=== PATIENT | female | born 1985 | race Caucasian/White ===

== ENCOUNTER → 2017-03-10 | Outpatient (CLI) | payer BC | LOC: LABWHC1 10:51 | PROVIDERS: ATTEND Obstetrics & Gynecology | DX: Z87.448 Personal history of other diseases of urinary system (principal) | CPT/HCPCS: 36415; 81050; 82575; 84156 ==

== ENCOUNTER → 2017-04-10 | Outpatient (CLI) | payer BC ==
--- NOTE | 2017-04-11 07:01 | CONS ---
DATE OF CONSULTATION: Consultation note for sleep apnea. A 31-year-old female patient who is currently 7-1/2 months . She comes in upon the request of her family members including for possible obstructive sleep apnea. Apparently the patient was recently noted to snore and stop breathing by her spouse. This was reported to her [facility]UAGE [facility] doctor who in turn referred this patient to me for sleep apnea evaluation. Note that these are not frequent events and the patient has been told to stop breathing a few times at night. This got worse actually with and prior to that she had no other complaints and she reported good sleep quality at baseline. Currently she is going to bed around 9:30 p.m., waking up at 7 to 8 a.m. in the morning and she is averaging more than 7 hours of sleep. No major tiredness, fatigue or sleepiness during the day. No troubles with memory and concentration. No falling asleep during the day. She has gained around 20 pounds above her baseline with her current . She prefers to sleep on her side now that she is . She wakes up a few times in the middle of the night approximately 2 to 3 times. No sleep paralysis. No hallucinations. No cataplexy. PAST MEDICAL HISTORY: Negative. PAST SURGICAL HISTORY: Negative. ALLERGIES: Not known. Medications are none. SOCIAL HISTORY: Nonsmoker. No history of alcohol. No history of IV drugs. FAMILY HISTORY: Negative for sleep apnea. REVIEW OF SYSTEMS: Twelve-point review of systems was done. Positive findings were all mentioned above in the history of present illness. Her BP is 139/76, pulse 82, respirations 16, temperature 98.0, saturation 98% on room air. BMI is 40.7. Her weight is 280. Height is 69-1/2 inches. [place] score is 14. Neck size is ( ). GENERAL APPEARANCE: Calm, comfortable. HEENT: Negative for JVD. There is no goiter or neck masses. No significant crowding of the posterior pharynx. LUNGS: Clear to auscultation. HEART: Sounds are regular rate and rhythm. Normal S1, S2. ABDOMEN: Soft, nontender. No organomegaly. EXTREMITIES: No edema. No cyanosis or clubbing. IMPRESSION: 1. Snoring with mild degree of hypersomnia. Rule out obstructive sleep apnea. 2. Obesity. 3. and the patient is in 7-1/2 months of gestation. PLAN: Ideally I would like the patient to complete her delivery. Studying this patient right now for sleep apnea may not be a true reflection of her sleep quality that we will follow following her delivery. I am sure that following the delivery, the patient will lose weight and the anatomic restriction on her lungs caused by the will improve. Her sleep quality will also changed. As such, the patient will see me back around 6 months following her delivery to be re-evaluated and at that point will consider doing a sleep study if needed.
== END | disposition home or self-care (01) ==
LOC: SLEEP 15:37
PROVIDERS: ATTEND Internal Medicine Critical Care Medicine
DX: O99.354 Diseases of the nervous system complicating childbirth (principal); G47.10 Hypersomnia, unspecified; E66.9 Obesity, unspecified; Z3A.01 Less than 8 weeks gestation of pregnancy
CPT/HCPCS: 99211

== ENCOUNTER 2017-05-23 18:51 | Inpatient (IN) | payer BC ==
[2017-05-23] MEDS ORDERED: CITRIC ACID-SODIUM CITRATE 15 ML CUP PO ONE (19:36)
[2017-05-23] MEDS ORDERED: ceFAZolin 3 GM in SODIUM CHLORIDE 0.9% 100 ML IVPB ONE (19:36)
[2017-05-23] MEDS ORDERED: LACTATED RINGERS 1,000 ML IV ONE (19:36)
[2017-05-23] MEDS ORDERED: PENICILLIN G POTASSIUM 5,000,000 UNIT in DEXTROSE 5% IN WATER 100 ML IVPB STA ×2 (19:44)
[2017-05-23 19:54] VITALS: BMI 41.3
[2017-05-23 19:55] LABS: Basophils % (A) 0 %; CH 27.8; Eosinophils # (A) 0.1 k/uL (0-0.7); Eosinophils % (A) 1 %; HCT 33.5 % (34.0-46.0); HGB 11.2 gm/dL (11.4-16.0); Luc # (Auto) 0.11; Luc % (Auto) 1; Lymphocytes # (A) 1.5 k/uL (1.0-4.8); Lymphocytes % (A) 17 %; MCH 28.3 pg (25.0-35.0); MCHC 33.4 g/dL (31.0-37.0); MCV 84.7 fL (80.0-100.0); Monocytes # (A) 0.5 k/uL (0-1.0); Monocytes % (A) 5 %; Neutrophils # (A) 6.8 k/uL (1.3-7.7); Neutrophils % (A) 75 %; RBC 3.96 m/uL (3.80-5.40); RDW 15.3 % (11.5-15.5); WBC 9.1 k/uL (3.8-10.6); WBC (Perox) 9.31
[2017-05-23] MEDS ORDERED: SODIUM CHLORIDE 0.9% 100 ML BAG ONE (20:38)
[2017-05-23] MEDS ORDERED: KETOROLAC 30 MG/ML 1 ML VIAL ONE (20:38)
[2017-05-23] MEDS ORDERED: MORPHINE SULFATE (PF) 0.3 MG/0.3 ML SYR ONE (20:38)
[2017-05-23] MEDS ORDERED: ceFAZolin 1,000 MG VIAL ONE (20:38)
[2017-05-23] MEDS ORDERED: PHENYLEPHRINE-0.9% NACL SYG 1 MG/10 ML SYRINGE ONE (20:38)
[2017-05-23] MEDS ORDERED: OXYTOCIN 10 UNIT/ML 1 ML VIAL ONE (20:38)
[2017-05-23] MEDS ORDERED: DEXAMETHASONE SOD PHOS (MDV) 100 MG/10 ML VIAL ONE (20:38)
[2017-05-23] MEDS ORDERED: ONDANSETRON 4 MG/2 ML VIAL ONE (20:38)
--- NOTE | 2017-05-23 20:38 | P.HPOB ---
History of Present Illness H&P Date: 05/23/17 Chief Complaint: My water broke at 5:30 this evening, clear fluid This is a 31-year-old female 2 para 1001 EDC 06/23/2017 at 35-4/7 weeks ' gestation. Patient presents with a history of spontaneous amniorrhexis, clear fluid at 5:30 PM. She is having mild irregular uterine contractions to follow. She denies vaginal bleeding. Fetus is been active throughout the . Past medical history is significant for polycystic kidneys. Past surgical history in the past for nonreassuring heart tones, low transverse. Patient has a history of rhinoplasty and a wrist repair as a child. Social history patient is , she is a nonsmoker, she denies alcohol or drug use. ALLERGIES none known. Current medications vitamins daily. Obstetric history is not complete, as the chart has not yet been sent over from the office. Patient is Rh+, group B strep cultures have not yet been obtained. Full labs will be sent over tomorrow morning. On exam this is a pleasant white female, 5 foot 9 inches, 280 pounds, vital signs are stable including blood pressure 139/74, pulse 93, temperature 97.5, respirations 15. The general physical exam is within normal limits. Extremities reveal no edema. Pelvic exam reveals positive amnisure, clear fluid. Cervix appears close to inspection. is breech to Sarwat's maneuvers. heart tones are consistent with reactive NST. Irregular uterine contractions are noted. Impression: 35-4/7 weeks intrauterine , previous section declining , spontaneous rupture of membranes, breech presentation. Plan: Penicillin G 5 million units as are the been given. We will proceed with low transverse repeat section. Patient is declining tubal ligation. All risks and benefits have been reviewed. Review of Systems Constitutional: Reports as per HPI Past Medical History Past Medical History: Renal Disease Additional Past Medical History / Comment(s): polycystic kidney disease History of Any Multi-Drug Resistant Organisms: None Reported Past Surgical History: Section Past Anesthesia/Blood Transfusion Reactions: No Reported Reaction Past Psychological History: No Psychological Hx Reported Smoking Status: Never smoker - Past Family History Mother Family Medical History: No Reported History Medications and Allergies Home Medications Medication Instructions Recorded Confirmed Type Ferrous Gluconate [Iron] 250 mg PO BID 05/23/17 05/23/17 History Pnv,Calcium 72/Iron/Folic Acid 1 tab PO DAILY 05/23/17 05/23/17 History [ Plus Tablet] Allergies Allergy/AdvReac Type Severity Reaction Status Date / Time No Known Allergies Allergy Verified 05/23/17 19:05 Exam - Vital Signs Vital signs: Vital Signs Temp Pulse Resp BP Pulse Ox 05/23/17 20:06 97.5 F L 93 15 139/74 05/23/17 19:51 97.5 F L 93 15 139/74 100 Intake and Output 05/23/17 05/23/17 05/23/17 06:59 14:59 22:59 Other: Weight 127.006 kg Patient Weight 05/24/17 06:59 Weight 127.006 kg See dictation under HPI section. Results Result Diagrams: 05/23/17 19:40 Abnormal Lab Results - Last 24 Hours (Table) 05/23/17 Range/Units 19:40 Hgb 11.2 L (11.4-16.0) gm/dL Hct 33.5 L (34.0-46.0) % Assessment and Plan Plan: Penicillin G prophylaxis has already been given. We will proceed with repeat low transverse section. Patient declining option for tubal ligation. Time with Patient: Less than 30
[2017-05-23] MEDS ORDERED: ONDANSETRON 4 MG/2 ML VIAL IVP PRN ×2 (21:12→21:42)
[2017-05-23] MEDS ORDERED: NALOXONE 0.4 MG/ML 1 ML VIAL IV PRN ×2 (21:12→21:42)
[2017-05-23] MEDS ORDERED: diphenhydrAMINE 50 MG/ML 1 ML VIAL IVP PRN ×3 (21:12→21:42)
[2017-05-23] MEDS ORDERED: MORPHINE SULFATE 4 MG/ML SYRINGE IVP PRN (21:12)
[2017-05-23] MEDS ORDERED: diphenhydrAMINE 50 MG CAP PO PRN (21:42)
[2017-05-23] MEDS ORDERED: diphenhydrAMINE 25 MG CAP PO PRN (21:42)
[2017-05-23] MEDS ORDERED: ZOLPIDEM 5 MG TAB PO PRN (21:42)
[2017-05-23] MEDS ORDERED: METOCLOPRAMIDE 5 MG/ML 2 ML VIAL IVP PRN (21:42)
[2017-05-23] MEDS ORDERED: IBUPROFEN 600 MG TAB PO PRN (21:42)
--- NOTE | 2017-05-23 21:42 | P.OP ---
Date of Procedure: 05/23/17 Preoperative Diagnosis: 35-4/7 weeks, premature rupture of membranes, previous section declining . Postoperative Diagnosis: liveborn female Procedure(s) Performed: repeat section Implants: Anesthesia: spinal Surgeon: Berkley Gaines Retail Financial Analyst #1: Savage Escobar Estimated Blood Loss (ml): 600 IV fluids (ml): 1,200 Urine output (ml): 600 Pathology: other (placenta) Condition: stable Disposition: PACU Indications for Procedure: Operative Findings: Description of Procedure: Patient is brought to the operating suite where a spinal with Duramorph is placed without difficulty. She is positioned in the dorsal lithotomy position with left lateral uterine displacement. Mcfarland catheter is placed to direct drainage. The appropriate timeout is performed to assure proper patient and procedural identification. The analgesia is checked and noted to be working well. The abdomen is prepped and draped in the usual sterile fashion. A repeat low transverse skin incision is made in this is carried down through the subcutaneous tissue to the fascia. Fascia is isolated, scored and extended bilaterally with curved Stevenson scissors. Fascia is next identified and incised, there is no bowel or bladder involvement. Subcutaneous tissues approximately 10 cm in depth. Peritoneum is entered easily. The bladder flap is created using Metzenbaum scissors. The Andrew retractable wound retractor is placed into the abdomen for excellent visualization. A low transverse uterine incision is made in this is carried down to the endometrial cavity. The incision is extended bilaterally with blunt dissection. The infant's head is delivered in the occiput anterior position, there is no nuchal cord noted. The patient is officially delivered of a liveborn female infant at 2059 hours. The oropharynx, nasopharynx and external nares are SUCTIONED prior to delivery of the infant's body. The is handed to waiting nurses for evaluation after the cord is doubly clamped and ligated. scores of 8 and 8 at one and 5 minutes respectively are given. Infant weighs 7 lbs. 9 oz. or 3430 g. The placentas delivered spontaneously, it is inspected and noted to be intact with trivascular cord. Uterus is then externalized and wiped clean with a sterile sponge to avoid any retained products of conception. Antibiotics are given. The uterus is massaged. Edges of the incision are grasped with Baumann clamps and the uterus is closed in a two-step fashion. First layer is running locking, second layer is imbricated. Both using 0 Vicryl suture. Hemostasis is excellent. Bilateral tubes and ovaries are inspected and noted to be normal. There is an approximate 8 cm submucosal fibroid noted in the anterior surface of the uterus. The abdomen is suctioned with suction on guard posterior to the uterus. Uterus is gently placed back into the abdominal cavity. Bilateral gutters are inspected and cleaned. Peritoneum was allowed to close by secondary intention. Fascia is reapproximated using 0 Vicryl in a running stitch. Over ligation as noted in the midline for excellent closure. Subcutaneous tissue is irrigated with sterile saline, noted to be clean and dry. It is reapproximated using 3-0 Vicryl in a running fashion. 4-0 undyed Vicryl issues for final skin closure. Steri-Strips and Mastisol are applied to the wound. Mcfarland is noted to be draining clear urine. All sponge needle and enhancement counts are correct at the end of the procedure. Total urine output 600 mL, fluid replacement 1800 mL, estimated blood loss 600 mL's. Pulse is 78, blood pressure 120/64 upon exiting the operating room. Abdominal binder is placed.
[2017-05-23] MEDS: LACTATED RINGERS 1,000 ML IV SCH (22:17)
[2017-05-24] MEDS: KETOROLAC 30 MG/ML 1 ML VIAL IVP PRN ×3 (05:08→18:22)
--- NOTE | 2017-05-24 06:20 | P.PN ---
Subjective Principal diagnosis: Postoperative day #1 Slept well. No flatus. Pain well controlled. No complaints Objective - Vital Signs Vital signs: Vital Signs Temp 98 F 05/23/17 23:32 Pulse 80 05/24/17 00:12 Resp 15 05/23/17 23:32 BP 137/74 05/23/17 23:32 Pulse Ox 98 05/24/17 02:00 Intake & Output 05/23/17 05/23/17 05/24/17 06:59 18:59 06:59 Intake Total 800 Output Total 1800 Balance -1000 Weight 127.006 kg Intake: IV 800 Output: Urine 1200 Estimated Blood Loss 600 - Constitutional General appearance: Present: average body habitus, cooperative - EENT Eyes: Present: PERRLA ENT: Present: hearing grossly normal - Neck Neck: Present: normal ROM Thyroid: bilateral: normal size - Respiratory Respiratory: bilateral: CTA - Cardiovascular Rhythm: regular - Gastrointestinal General gastrointestinal: Present: normal bowel sounds - Integumentary Integumentary Comment(s): Incision clean and dry, intact, well approximated. Fundus firm, midline, symmetric, 18 week size, nontender. Integumentary: Present: normal - Neurologic Neurologic: Present: CNII-XII intact - Musculoskeletal Musculoskeletal: Present: gait normal - Psychiatric Psychiatric: Present: A&O x's 3, appropriate affect, intact judgment & insight - Labs CBC & Chem 7: 05/23/17 19:40 Labs: Abnormal Lab Results - Last 24 Hours (Table) 05/23/17 Range/Units 19:40 Hgb 11.2 L (11.4-16.0) gm/dL Hct 33.5 L (34.0-46.0) %
[2017-05-24] MEDS: LACTATED RINGERS 1,000 ML IV SCH ×2 (06:37→14:41)
[2017-05-24 07:18] LABS: Basophils % (A) 0 %; CH 27.6; CHCM 32.3; Eosinophils % (A) 0 %; HCT 29.8 % (34.0-46.0); HDW 2.71; Luc # (Auto) 0.13; Luc % (Auto) 1; Lymphocytes # (A) 1.1 k/uL (1.0-4.8); Lymphocytes % (A) 10 %; MCH 27.3 pg (25.0-35.0); MCHC 31.7 g/dL (31.0-37.0); MCV 86.1 fL (80.0-100.0); Monocytes # (A) 0.4 k/uL (0-1.0); Monocytes % (A) 3 %; Neutrophils # (A) 9.6 k/uL (1.3-7.7); Neutrophils % (A) 85 %; RBC 3.47 m/uL (3.80-5.40); RDW 15.2 % (11.5-15.5); WBC 11.2 k/uL (3.8-10.6); WBC (Perox) 11.71
[2017-05-24 07:22] LABS: HGB 9.5 gm/dL (11.4-16.0)
--- NOTE | 2017-05-24 08:38 | P.PN ---
Progress Note - Text Date: 05/24/2017 Time: 07 The patient is status post section Vital signs stable VAS:[ 0-10] Patient has no complaints of pain. The patient incurred some minimal itching yesterday, this itching is now subsiding. Pain meds to be managed by service.
[2017-05-24] MEDS: SENNOSIDES-DOCUSATE SODIUM 1 EACH TAB PO SCH ×2 (08:57→19:42)
[2017-05-24 19:45] VITALS: RESP 18
[2017-05-25] MEDS ORDERED: SIMETHICONE 80 MG CHEWABLE PO PRN (02:42)
[2017-05-25 08:01] VITALS: BP 136/79; PULSE 81; TEMP 98
--- NOTE | 2017-05-25 08:40 | P.DS ---
Providers Date of admission: 05/23/17 19:26 Expected date of discharge: 05/25/17 Attending physician: Berkley Gaines Primary care physician: Stated None Hospital Course: This is a 31-year-old white female 2 para 0101 EDC 06/23/2017 at 35-4/7 weeks' gestation. Patient presented to labor and delivery with spontaneous amniorrhexis which occurred at home, clear fluid. was essentially unremarkable, group B strep cultures unknown secondary to gestational age. Patient does have a history of polycystic kidney disease, please see my dictated history and physical for details. Repeat section was done per her request. She gave to a live born female with scores of 8 and 8 at one and 5 minutes respectively. Infant weighed 3430 g or 7 lbs. 9 oz. Please see dictated operative note for details. This morning the patient is doing well. She is voiding, ambulating and passing flatus without difficulty. Vital signs are stable and she is afebrile. Fundus is firm and in the midline, symmetric and 18 week size. Incision is clean and dry, intact, long Steri-Strips applied. Extremities are negative for edema. Chest is clear in all garcia. Baby was transferred to another hospital for respiratory issues. Patient is anxious to be discharged home this morning. She is judged to be in good condition for discharge home. I have given her prescription for Tylenol 3's to be used as needed for moderate to severe pain. I've asked her to call me with any fevers shakes or chills, foul smelling or copious lochia, with the passage of large blood clots, with any pain not alleviated by Tylenol threes, or indeed with any concerns. She will continue taking her vitamin daily. I have given her prescription for a double electric breast pump to be used as needed. I reminded her about proper incisional care. No driving for 2 weeks, no heavy lifting, no tampons intercourse or douching. She will call in follow-up with me in the office in 2 weeks or as needed. Patient Condition at Discharge: Good Plan - Discharge Summary New Discharge Prescriptions: No Action Pnv,Calcium 72/Iron/Folic Acid [ Plus Tablet] 1 tab PO DAILY Ferrous Gluconate [Iron] 250 mg PO BID Discharge Medication List Ferrous Gluconate [Iron] 250 mg PO BID 05/23/17 [History] Pnv,Calcium 72/Iron/Folic Acid [ Plus Tablet] 1 tab PO DAILY 05/23/17 [ History] Follow up Appointment(s)/Referral(s): Berkley Gaines MD [STAFF PHYSICIAN] - 2 Weeks Discharge Disposition: HOME SELF-CARE
[2017-05-25] MEDS ORDERED: Acetaminophen-Codeine 300-30mg TAB PO STA (09:30)
[2017-05-25] MEDS: SENNOSIDES-DOCUSATE SODIUM 1 EACH TAB PO SCH (09:49)
== END 2017-05-25 09:53 | disposition home or self-care (01) | DRG 765 ==
LOC: FBPOP 18:51 → 4FBP 19:26
PROVIDERS: ADMIT Obstetrics & Gynecology; ATTEND Obstetrics & Gynecology
PROC: 3E0S3NZ Introduction of Analgesics, Hypnotics, Sedatives into Epidural Space, Percutaneous Approach (ICD-10-PCS; 2017-05-23)
PROC: 10D00Z1 Extraction of Products of Conception, Low, Open Approach (ICD-10-PCS; principal; 2017-05-23 20:50)
DX: O32.1XX0 Maternal care for breech presentation, not applicable or unspecified (principal); O60.14X0 Preterm labor third trimester with preterm delivery third trimester, not applicable or unspecified; Q61.3 Polycystic kidney, unspecified; O34.13 Maternal care for benign tumor of corpus uteri, third trimester; O34.211 Maternal care for low transverse scar from previous cesarean delivery; O42.013 Preterm premature rupture of membranes, onset of labor within 24 hours of rupture, third trimester; N85.8 Other specified noninflammatory disorders of uterus; O26.839 Pregnancy related renal disease, unspecified trimester; Z3A.35 35 weeks gestation of pregnancy; Z37.0 Single live birth; Z79.899 Other long term (current) drug therapy; Z87.891 Personal history of nicotine dependence; Z91.030 Bee allergy status
CPT/HCPCS: 59025; 84112; 85025; 86850; 86900; 86901; 88307; 99213

== ENCOUNTER → 2018-06-28 | Outpatient (CLI) | payer BC, OTHER ==
--- NOTE | 2018-06-28 10:13 | US ---
EXAMINATION TYPE: US kidneys/renal and bladder DATE OF EXAM: 06/28/2018 COMPARISON: NONE CLINICAL HISTORY: Q61.2 POLYCYSTIC KIDNEY ADULT TYPE. History of polycystic kidney disease EXAM MEASUREMENTS: Right Kidney: 17.2 x 7.7 x 8.4 cm Left Kidney: 20.0 x 8.7 x 10.0 cm Impression poor differentiation of the cortical medullary junction due to the polycystic appearance o f the kidneys Right Kidney: enlarged with multiple cystic areas noted, largest at lower pole = 5.9 x 3.5 x 4.1cm Left Kidney: enlarged with multiple cystic areas, largest at mid = 9.5 x 5.2 x 7.2cm Bladder: not fully distended Bilateral Jets seen: no, a single ureteral jet is identified. IMPRESSION: 1. Multiple bilateral renal cysts.
== END | disposition home or self-care (01) ==
LOC: RADUSWWP 07:23
PROVIDERS: ATTEND Family Medicine
DX: N28.1 Cyst of kidney, acquired (principal)
CPT/HCPCS: 76770

== ENCOUNTER → 2018-07-01 | Outpatient (CLI) | payer BC ==
[2018-07-01 12:52] VITALS: BMI 37.2
== END | disposition home or self-care (01) ==
LOC: MNTWWP 10:28
PROVIDERS: ATTEND Family Medicine
DX: E66.9 Obesity, unspecified (principal); Z68.39 Body mass index [BMI] 39.0-39.9, adult
CPT/HCPCS: 97802

== ENCOUNTER → 2018-10-02 | Outpatient (CLI) | payer BC ==
[2018-10-02 16:51] LABS: Appearance,Urine Clear (Clear); Bilirubin,Urine Negative (Negative); Blood,Urine Negative (Negative); Color,Urine Light Yellow; Glucose,Urine (UA) Negative (Negative); Ketones,Urine Negative (Negative); Leukocyte Esterase,Urine Negative (Negative); Nitrite,Urine Negative (Negative); Protein,Urine Negative (Negative); Specific Gravity,Urine 1.015 (1.001-1.035); Urobilinogen,Urine <2.0 mg/dL (<2.0)
[2018-10-02 17:11] LABS: HGB 11.2 gm/dL (11.4-16.0); Hypochromasia Moderate; MCHC 32.1 g/dL (31.0-37.0); MCV 87.4 fL (80.0-100.0); Mean Platelet Volume 8.2; Platelet Count 218 k/uL (150-450); RBC 4.01 m/uL (3.80-5.40); RDW 14.5 % (11.5-15.5)
[2018-10-03 03:28] LABS: Albumin 4.1 g/dL (3.80-4.90); Albumin/Globulin Ratio 2.05 (1.20-2.10); Calcium 8.6 mg/dL (8.7-10.3); Phosphorus 3.5 mg/dL (2.4-5.1); Potassium 4.2 mmol/L (3.5-5.5); Total Bilirubin 0.2 mg/dL (0.3-1.2); Total Protein 6.1 g/dL (6.2-8.2)
== END | disposition home or self-care (01) ==
LOC: LABT 15:01
PROVIDERS: ATTEND Internal Medicine
DX: N39.0 Urinary tract infection, site not specified (principal); E83.39 Other disorders of phosphorus metabolism; D64.9 Anemia, unspecified
CPT/HCPCS: 36415; 80053; 81003; 84100; 85027

== ENCOUNTER → 2018-11-04 | Outpatient (CLI) | payer BC ==
--- NOTE | 2018-11-05 06:53 | MR ---
EXAMINATION TYPE: MR kidney wo con DATE OF EXAM: 11/04/2018 COMPARISON: Renal ultrasound June 28, 2018 HISTORY: Polycystic kidney disease Standard multiplanar, multisequence MRI departmental protocol Multiplanar, multisequence images of the abdomen focusing on both kidneys were acquired. FINDINGS: KIDNEYS: Marked enlargement of bilateral kidneys is identified. Right kidney measures approximately 1 4.2 cm long axis coronal image by up to 10.0 cm transversely same coronal image by approximately 10.5 cm AP diameter axial image 18. Left kidney measures larger approximately 17.5 cm long axis coronal i mage 25 x 11.3 cm transversely by roughly 10.7 cm AP diameter axial image 20. Both lesions show innum erable thin-walled lesions of T2 hyperintensity, some are slightly less intense. Findings likely refl ect a combination of thin-walled simple cysts and proteinaceous and/or hemorrhagic cysts. No obvious hydronephrosis is seen. Local mass effect due to enlarged kidneys is noted. OTHER: Visualized lung bases are clear. The liver, gallbladder, spleen, pancreas, and left adrenal gl and are normal in size. There may be 1.7 cm lipid rich adenoma right adrenal gland axial image 95 radha juliocesar exophytic proteinaceous cyst as lesion is in the region of the inferior posterior limb right adre nal gland, I do favor the latter. No suspicious bowel dilatation is seen. No concerning abdominal flu id collection is noted. No suspicious abdominal adenopathy is seen. Visualized osseous structures are intact. IMPRESSION: Findings consistent with adult type polycystic kidney disease as detailed above.
== END | disposition home or self-care (01) ==
LOC: RADMRIMAIN 16:33
PROVIDERS: ATTEND Internal Medicine
DX: Q61.2 Polycystic kidney, adult type (principal)
CPT/HCPCS: 74181

== ENCOUNTER → 2019-01-01 | Outpatient (CLI) | payer BC ==
[2019-01-01 12:38] LABS: HCT 39.1 % (34.0-46.0); HGB 12.4 gm/dL (11.4-16.0); Hypochromasia Slight; MCH 27.2 pg (25.0-35.0); MCHC 31.6 g/dL (31.0-37.0); MCV 85.9 fL (80.0-100.0); Mean Platelet Volume 7.5; Platelet Count 206 k/uL (150-450); RBC 4.55 m/uL (3.80-5.40); RDW 14.9 % (11.5-15.5); WBC 7.3 k/uL (3.8-10.6)
[2019-01-01 20:00] LABS: Iron Saturation 11.56 (12.00-45.00); Parathyroid Hormone Intact 67.1 pg/mL (14.0-72.0)
[2019-01-01 20:09] LABS: Vitamin D 25 Hydroxy 21.9 ng/mL (30.0-100.0)
[2019-01-01 20:18] LABS: Albumin 4.3 g/dL (3.80-4.90); Albumin/Globulin Ratio 1.95 (1.60-3.17); Anion Gap 4.4 mmol/L (4.00-12.00); Calcium 9.3 mg/dL (8.7-10.3); Carbon Dioxide 26.6 mmol/L (21.6-31.8); Globulin 2.2 g/dL (1.6-3.3); Magnesium 1.8 mg/dL (1.5-2.4); Phosphorus 3.2 mg/dL (2.4-5.1); Total Bilirubin 0.5 mg/dL (0.3-1.2); Total Protein 6.5 g/dL (6.2-8.2); Uric Acid 5.9 mg/dL (2.9-7.7)
== END | disposition home or self-care (01) ==
LOC: LABWHC1 11:21
PROVIDERS: ATTEND Internal Medicine
DX: Q61.2 Polycystic kidney, adult type (principal); D64.9 Anemia, unspecified; E21.3 Hyperparathyroidism, unspecified; E55.9 Vitamin D deficiency, unspecified; M10.9 Gout, unspecified
CPT/HCPCS: 36415; 80053; 82306; 82728; 83540; 83550; 83735; 83970; 84100; 84550; 85027

== ENCOUNTER → 2019-06-25 | Outpatient (CLI) | payer BC ==
--- NOTE | 2019-06-26 15:18 | MM ---
Reason for exam: screening (asymptomatic). History: Patient had first child at age 29. Family history of breast cancer in sister at age 21. Took hormonal contraceptives beginning at age 14. Physical Findings: A clinical breast exam by your physician is recommended on an annual basis and results should be correlated with mammographic findings. MG Screening Mammo w CAD Bilateral CC and MLO view(s) were taken. No prior studies available for comparison. Benign appearing bilateral calcifications. ASSESSMENT: Benign, BI-RAD 2 RECOMMENDATION: Routine screening mammogram of both breasts in 1 year.
== END | disposition home or self-care (01) ==
LOC: RADMAMWWP 06:52
PROVIDERS: ATTEND Obstetrics & Gynecology
DX: Z12.31 Encounter for screening mammogram for malignant neoplasm of breast (principal); Z80.3 Family history of malignant neoplasm of breast
CPT/HCPCS: 77067

== ENCOUNTER → 2022-01-27 | Outpatient (CLI) | payer BC ==
--- NOTE | 2022-01-27 14:02 | US ---
EXAMINATION TYPE: Transabdominal DATE OF EXAM: 01/27/2022 1:15 PM COMPARISON: NONE CLINICAL HISTORY: O46.91 Bleeding first trimester. Vaginal bleeding starting this morniing EXAM PERFORMED: Transvaginal (TV) and Transabdominal (TA) EXAM MEASUREMENTS: GESTATIONAL AGE / DATING Dates by LMP: (7 weeks/4 days) EDC: 09/11/2022 Dates by Current Scan for: (7 weeks/4 days) EDC: 09/10/2022 MATERNAL ANATOMY Uterus: 13.4 x 7.1 x 6.2 cm Hypoechoic mass measuring 3.6 x 4.5 x 3.6 cm Right Ovary: 4.1 x 2.9 x 1.4 cm, anechoic area measuring1.3 x 1.5 x 1.6 cm Left Ovary: 3.3 x 3.2 x 2.3 cm Presence of free fluid: none Presence of corpus luteal cyst: Left ovary measuring 1.9 x 2.1 x 1.8 cm Presence of subchorionic bleed: Small bleed measuring 1.0 x 0.9 x 1.2 cm GESTATION / SURVEY CRL: 1.35 cm (7 weeks/4 days) Yolk Sac (normal less than 6mm): 0.36 cm Heart Rate: 135 bpm Rhythm: Normal IUP: Viable IUP Date of LMP: 12/05/2021 Beta HcG (if available): Not available at this time IMPRESSION: Single live IUP, Small subchorionic bleed seen, uterine fibroid seen within uterus , small nabothian cyst seen in cervix , and right ovarian anchonic area .
[2022-01-27 14:30] LABS: Basophils % (A) 1 %; Eosinophils # (A) 0.1 k/uL (0-0.7); Eosinophils % (A) 1 %; HCT 36.3 % (34.0-46.0); HGB 11.6 gm/dL (11.4-16.0); Lymphocytes # (A) 1.4 k/uL (1.0-4.8); Lymphocytes % (A) 20 %; MCHC 32.1 g/dL (31.0-37.0); MCV 90.4 fL (80.0-100.0); Mean Platelet Volume 8.9; Monocytes # (A) 0.3 k/uL (0-1.0); Monocytes % (A) 5 %; Neutrophils % (A) 72 %; Platelet Count 182 k/uL (150-450); RBC 4.01 m/uL (3.80-5.40)
== END | disposition home or self-care (01) ==
LOC: RADUSWWP 12:24
PROVIDERS: ATTEND Obstetrics & Gynecology
DX: O46.91 Antepartum hemorrhage, unspecified, first trimester (principal); O34.11 Maternal care for benign tumor of corpus uteri, first trimester; D25.9 Leiomyoma of uterus, unspecified; N88.8 Other specified noninflammatory disorders of cervix uteri; Z3A.01 Less than 8 weeks gestation of pregnancy
CPT/HCPCS: 76801; 76817; 84702; 85025; 86850; 86900; 86901

== ENCOUNTER → 2022-03-22 | Outpatient (CLI) | payer BC ==
[2022-03-22 15:13] LABS: HCT 32.4 % (37.2-46.3); HGB 10.2 g/dL (12.0-15.0); MCH 28.3 pg (27.0-32.0); MCHC 31.5 g/dL (32.0-37.0); MCV 89.8 fL (80.0-97.0); Mean Platelet Volume 10.9 fL (9.5-12.2); NRBC Per 100 WBC 0 /100 WBCS (0.0-0.0); Platelet Count 158 X 10*3/uL (140-440); RBC 3.61 X 10*6/uL (4.10-5.20); RDW 14.3 % (11.5-14.5); WBC 5.44 X 10*3/uL (4.50-10.00)
[2022-03-22 15:34] LABS: % Iron Saturation 15.03 (12.00-45.00); African American GFR (CKD) 92.5 (60.0-200.0); Albumin 3.8 g/dL (3.8-4.9); Albumin/Globulin Ratio 1.31 (1.60-3.17); Anion Gap 13.1 mmol/L (10.00-18.00); BUN/Creat Ratio 19.19 Ratio (12.00-20.00); Blood Urea Nitrogen 17.5 mg/dL (9.0-27.0); Calcium 9.6 mg/dL (8.7-10.3); Carbon Dioxide 18.1 mmol/L (20.0-27.5); Globulin 2.9 g/dL (1.6-3.3); Magnesium 1.7 mg/dL (1.5-2.4); Non-African American GFR(CKD) 79.8 (60.0-200.0); Phosphorus 4.5 mg/dL (2.4-5.1); Potassium 4.3 mmol/L (3.5-5.5); Total Bilirubin 0.2 mg/dL (0.30-1.20); Total Protein 6.8 g/dL (6.2-8.2); Uric Acid 4.8 mg/dL (2.9-7.7)
[2022-03-22 15:47] LABS: Ferritin 68.9 ng/mL (10.0-291.0)
== END | disposition home or self-care (01) ==
LOC: LABWHC1 09:36
PROVIDERS: ATTEND Nurse Practitioner Family
DX: N25.81 Secondary hyperparathyroidism of renal origin (principal); D64.9 Anemia, unspecified; E55.9 Vitamin D deficiency, unspecified; M10.9 Gout, unspecified; Q61.2 Polycystic kidney, adult type
CPT/HCPCS: 36415; 80053; 82306; 82728; 83540; 83550; 83735; 83970; 84100; 84550; 85027

== ENCOUNTER → 2024-04-14 | Outpatient (CLI) | payer BC ==
--- NOTE | 2024-04-15 08:21 | US ---
EXAMINATION TYPE: US abdomen limited DATE OF EXAM: 04/14/2024 COMPARISON: CLINICAL INDICATION: Female, 38 years old with history of R10.11 RUQ PAIN; hx polycystic kidneys. TECHNIQUE: Multiple sonographic images of the right upper quadrant are obtained. FINDINGS: EXAM MEASUREMENTS: Liver Length: 15.9 cm Gallbladder Wall: 0.2 cm CBD: 0.5 cm Right Kidney: 11.9 x 5.4 x 6.1 cm Pancreas: Echogenic in appearance Liver: Slightly coarse may represent some mild fatty infiltration liver. Gallbladder: No stones or wall thickening Evidence for sonographic Durham's sign: neg CBD: wnl Right Kidney: Multiple cysts seen throughout kidney with largest seen mid = 3.6 x 2.8 x 2.2 cm IMPRESSION: 1. Right renal cysts. 2. Mild fatty infiltration of the liver.
== END | disposition home or self-care (01) ==
LOC: RADUSWWP 07:11
PROVIDERS: ATTEND Internal Medicine Gastroenterology
DX: K76.0 Fatty (change of) liver, not elsewhere classified (principal); N28.1 Cyst of kidney, acquired
CPT/HCPCS: 76705

== ENCOUNTER → 2024-06-13 | Outpatient (CLI) | payer BC ==
[2024-06-13 14:46] LABS: Creatinine,Urine Random 58.2 mg/dL; Protein/Creatinine Ratio,Urine 0.447
[2024-06-13 15:15] LABS: HCT 35.4 % (37.2-46.3); HGB 10.8 g/dL (12.0-15.0); MCH 27.9 pg (27.0-32.0); MCHC 30.5 g/dL (32.0-37.0); MCV 91.5 FL (80.0-97.0); Mean Platelet Volume 12.1 FL (9.5-12.2); NRBC Per 100 WBC 0 X 10*3/uL (0.00-0.01); Platelet Count 184 X 10*3/uL (140-440); RBC 3.87 X 10*6/uL (4.10-5.20); RDW 15.1 % (11.5-14.5); WBC 4.43 X 10*3/uL (4.50-10.00)
[2024-06-13 15:55] LABS: % Iron Saturation 9.92 (12.00-45.00); ALT 8 U/L (8-44); AST 19 U/L (13-35); Albumin 4.2 g/dL (3.8-4.9); Albumin/Globulin Ratio 1.62 Ratio (1.60-3.17); Alkaline Phosphatase 63 U/L (41-126); BUN/Creat Ratio 18.07 Ratio (12.00-20.00); Blood Urea Nitrogen 27.1 mg/dL (9.0-27.0); Calcium 9.2 mg/dL (8.7-10.3); Carbon Dioxide 21.3 mmol/L (21.6-31.8); Chloride 112 mmol/L (96-109); Globulin 2.6 g/dL (1.6-3.3); Glucose 98 mg/dL (70-110); Iron 35 UG/DL (50-170); Phosphorus 3.5 mg/dL (2.4-5.1); Potassium 4.7 mmol/L (3.5-5.5); Sodium 145 mmol/L (135-145); Total Bilirubin 0.4 mg/dL (0.3-1.2); Total Iron Binding Capacity 353 UG/DL (228-460); Total Protein 6.8 g/dL (6.2-8.2); Uric Acid 6.9 mg/dL (2.9-7.7)
== END | disposition home or self-care (01) ==
LOC: LABWHC1 11:19
PROVIDERS: ATTEND Internal Medicine Nephrology
DX: Q61.2 Polycystic kidney, adult type (principal); D64.9 Anemia, unspecified; E21.3 Hyperparathyroidism, unspecified; E55.9 Vitamin D deficiency, unspecified; M10.9 Gout, unspecified; R80.9 Proteinuria, unspecified
CPT/HCPCS: 36415; 80053; 82043; 82306; 82570; 82728; 83540; 83550; 83735; 83970; 84100; 84156; 84550; 85027

== ENCOUNTER → 2024-07-03 | Outpatient (CLI) | payer BC | END | disposition home or self-care (01) | LOC: LABPRL 12:00 | PROVIDERS: ATTEND Nurse Practitioner Family | DX: Q61.2 Polycystic kidney, adult type | CPT/HCPCS: 81050; 84156 ==

== ENCOUNTER → 2024-07-23 | Outpatient (CLI) | payer BC ==
[2024-07-23 12:43] LABS: Creatinine,Urine Random 36.5 mg/dL; Protein/Creatinine Ratio,Urine 0.411
--- NOTE | 2024-07-23 13:09 | US ---
EXAMINATION TYPE: US kidneys/renal and bladder DATE OF EXAM: 07/23/2024 COMPARISON: NONE CLINICAL INDICATION: Female, 38 years old with history of Q61.2 POLYCYSTIC KIDNEY, ADULT TYPE; Polycy stic kidneys EXAM MEASUREMENTS: Right Kidney: 15.1 x 6.9 x 7.2 cm Left Kidney: 16.9 x 6.9 x 7.2 cm Right Kidney: Multiple cysts seen. No suspicious solid mass. No hydronephrosis. No calculi visualize d. Left Kidney: Multiple cysts seen. No suspicious solid mass. No hydronephrosis. No calculi visualized. Bladder: wnl Bilateral Jets seen: Yes . The urinary bladder is anechoic. Bilateral ureteral jets are seen. IMPRESSION: 1. No evidence for obstructive uropathy. 2. Multiple bilateral renal cysts. No suspicious solid mass.
[2024-07-23 15:20] LABS: Basophils # (A) 0.04 X 10*3/uL (0.00-0.10); Eosinophils # (A) 0.05 X 10*3/uL (0.04-0.35); Eosinophils % (A) 1.2 %; HCT 34.2 % (37.2-46.3); HGB 10.5 g/dL (12.0-15.0); Lymphocytes % (A) 29.2 %; MCH 28.1 pg (27.0-32.0); MCHC 30.7 g/dL (32.0-37.0); MCV 91.4 FL (80.0-97.0); Mean Platelet Volume 11.7 FL (9.5-12.2); Monocytes # (A) 0.32 X 10*3/uL (0.20-1.00); Monocytes % (A) 7.8 %; NRBC Per 100 WBC 0 X 10*3/uL (0.00-0.01); Neutrophils # (A) 2.49 X 10*3/uL (1.80-7.70); Neutrophils % (A) 60.6 %; Platelet Count 179 X 10*3/uL (140-440); RBC 3.74 X 10*6/uL (4.10-5.20); RDW 14.1 % (11.5-14.5); WBC 4.11 X 10*3/uL (4.50-10.00)
[2024-07-23 16:22] LABS: % Iron Saturation 14.24 (12.00-45.00); ALT 8 U/L (8-44); AST 20 U/L (13-35); Albumin 4.2 g/dL (3.8-4.9); Albumin/Globulin Ratio 1.75 Ratio (1.60-3.17); Alkaline Phosphatase 53 U/L (41-126); BUN/Creat Ratio 14.13 Ratio (12.00-20.00); Blood Urea Nitrogen 21.2 mg/dL (9.0-27.0); Calcium 9.2 mg/dL (8.7-10.3); Chloride 108 mmol/L (96-109); Ferritin 46.9 ng/mL (10.0-291.0); Globulin 2.4 g/dL (1.6-3.3); Glucose 92 mg/dL (70-110); Iron 48 UG/DL (50-170); Potassium 3.9 mmol/L (3.5-5.5); Sodium 140 mmol/L (135-145); Total Bilirubin 0.4 mg/dL (0.3-1.2); Total Iron Binding Capacity 337 UG/DL (228-460); Total Protein 6.6 g/dL (6.2-8.2)
[2024-07-23 18:20] LABS: Urine Creatinine 35.7 mg/dL (28.0-217.0)
== END | disposition home or self-care (01) ==
LOC: RADUSWWP 11:18
PROVIDERS: ATTEND Internal Medicine
DX: Q61.2 Polycystic kidney, adult type (principal)
CPT/HCPCS: 76770; 80053; 82043; 82570; 82728; 83540; 83550; 84156; 85025

== ENCOUNTER → 2024-07-29 | Outpatient (CLI) | payer BC ==
--- NOTE | 2024-07-29 21:04 | MR ---
EXAMINATION TYPE: MR angio head wo/neck wo/w con DATE OF EXAM: 07/29/2024 5:36 PM CLINICAL INDICATION: Female, 38 years old with history of Q61.2 POLYCYSTIC KIDNEY; PHH, Autosomal dom inant PKD. No symptoms. COMPARISON: None Technical: MRA brain: 2D and 3-D [id number] Axial with MIP and 3-D reconstruction. Performed on a separate w orkstation. MRA neck: Multiplanar, multi-sequence imaging as well as [id number] and phase was performed extra cranial vasculature of the neck. 3-D reformatted images and maximum intensity projection reformatted images were submitted for evaluation, these are performed on a separate workstation. IV Contrast: 9 cc Gadavist Findings: Vertebral arteries: The vertebral arteries are patent. Vertebral arteries are: Codominant. Basilar artery: The basilar artery is intact. The basilar artery bifurcation is normal. Internal Carotid arteries: The cervical, petrous, cavernous and supraclinoid segments are normal. SHERYL: Patent with no evidence of aneurysm. ACOM: Present without evidence of aneurysm. MCA: Patent with no evidence of aneurysm. INDUSTRIAL PARAMEDIC: Patent with no evidence of aneurysm. origin of left posterior cerebellar artery. PCOM: origin left, hypoplastic right. RIGHT CAROTID SYSTEM: The common carotid artery is patent. The carotid bifurcations demonstrates no e vidence for hemodynamically significant stenosis. The internal carotid artery is patent. LEFT CAROTID SYSTEM: The common carotid artery is patent. The carotid bifurcations demonstrates no e vidence for hemodynamically significant stenosis. The internal carotid artery is patent. The origins of the great vessels and vertebral arteries appear unremarkable. The vertebral arteries a re slightly left dominant. IMPRESSION: 1. No evidence of intracranial aneurysm or significant stenosis. 2. No evidence of significant stenosis at the carotid bifurcations. The carotid and vertebral arteri es are patent. 3. No evidence aneurysm.
== END | disposition home or self-care (01) ==
LOC: RADMRIMAIN 16:10
PROVIDERS: ATTEND Internal Medicine
DX: Q61.2 Polycystic kidney, adult type (principal)
CPT/HCPCS: 70544; 70549

== ENCOUNTER → 2024-10-01 | Outpatient (CLI) | payer BC ==
[2024-10-01 12:23] LABS: Creatinine,Urine Random 57.7 mg/dL; Protein/Creatinine Ratio,Urine 0.225
[2024-10-01 15:09] LABS: HCT 38.5 % (37.2-46.3); HGB 11.9 g/dL (12.0-15.0); MCH 27.8 pg (27.0-32.0); MCHC 30.9 g/dL (32.0-37.0); Mean Platelet Volume 12.3 FL (9.5-12.2); NRBC Per 100 WBC 0 X 10*3/uL (0.00-0.01); Platelet Count 145 X 10*3/uL (140-440); RBC 4.28 X 10*6/uL (4.10-5.20); RDW 13.3 % (11.5-14.5)
[2024-10-01 15:23] LABS: Iron 62 UG/DL (50-170); Magnesium 1.8 mg/dL (1.5-2.4); Total Iron Binding Capacity 323 UG/DL (228-460)
[2024-10-01 15:24] LABS: ALT <5 U/L (8-44); AST 24 U/L (13-35); Albumin 4.4 g/dL (3.8-4.9); Albumin/Globulin Ratio 1.57 Ratio (1.60-3.17); Alkaline Phosphatase 50 U/L (41-126); BUN/Creat Ratio 15.06 Ratio (12.00-20.00); Blood Urea Nitrogen 24.1 mg/dL (9.0-27.0); Calcium 9.7 mg/dL (8.7-10.3); Carbon Dioxide 20.2 mmol/L (21.6-31.8); Chloride 106 mmol/L (96-109); Globulin 2.8 g/dL (1.6-3.3); Glucose 90 mg/dL (70-110); Potassium 4.8 mmol/L (3.5-5.5); Sodium 139 mmol/L (135-145); Total Bilirubin 0.6 mg/dL (0.3-1.2); Total Protein 7.2 g/dL (6.2-8.2)
[2024-10-01 21:50] LABS: Urine Creatinine 57.9 mg/dL (28.0-217.0)
== END | disposition home or self-care (01) ==
LOC: LABWHC1 08:42
PROVIDERS: ATTEND Internal Medicine
DX: D64.9 Anemia, unspecified (principal); Q61.2 Polycystic kidney, adult type; R80.9 Proteinuria, unspecified
CPT/HCPCS: 36415; 80053; 82043; 82570; 82728; 83540; 83550; 83735; 84100; 84156; 85027

== ENCOUNTER → 2024-11-17 | Outpatient (CLI) | payer BC ==
[2024-11-17 15:39] LABS: ALT 6 U/L (8-44); AST 18 U/L (13-35); Albumin 4.1 g/dL (3.8-4.9); Albumin/Globulin Ratio 1.78 Ratio (1.60-3.17); Alkaline Phosphatase 54 U/L (41-126); Blood Urea Nitrogen 23.1 mg/dL (9.0-27.0); Calcium 9.4 mg/dL (8.7-10.3); Carbon Dioxide 22.8 mmol/L (21.6-31.8); Chloride 113 mmol/L (96-109); Globulin 2.3 g/dL (1.6-3.3); Glucose 100 mg/dL (70-110); Potassium 4.5 mmol/L (3.5-5.5); Sodium 146 mmol/L (135-145); Total Bilirubin 0.4 mg/dL (0.3-1.2); Total Protein 6.4 g/dL (6.2-8.2)
== END | disposition home or self-care (01) ==
LOC: LABWHC1 08:49
PROVIDERS: ATTEND Internal Medicine
DX: Q61.2 Polycystic kidney, adult type (principal)
CPT/HCPCS: 36415; 80053

== ENCOUNTER → 2024-12-10 | Outpatient (CLI) | payer BC ==
[2024-12-10 15:23] LABS: Appearance,Urine Clear (Clear); Bilirubin,Urine Negative (Negative); Blood,Urine Negative (Negative); Color,Urine Yellow (Yellow); Ketones,Urine Negative (Negative); Nitrite,Urine Negative (Negative); Specific Gravity,Urine 1.004 (1.001-1.030); Urobilinogen,Urine 0.2 E.U./DL
[2024-12-10 17:10] LABS: % Iron Saturation 14.14 (12.00-45.00); ALT 8 U/L (8-44); AST 25 U/L (13-35); Albumin 4.5 g/dL (3.8-4.9); Albumin/Globulin Ratio 1.73 Ratio (1.60-3.17); Alkaline Phosphatase 55 U/L (41-126); BUN/Creat Ratio 14.94 Ratio (12.00-20.00); Blood Urea Nitrogen 23.9 mg/dL (9.0-27.0); Calcium 9.9 mg/dL (8.7-10.3); Carbon Dioxide 23.4 mmol/L (21.6-31.8); Chloride 106 mmol/L (96-109); Globulin 2.6 g/dL (1.6-3.3); Glucose 96 mg/dL (70-110); Iron 43 UG/DL (50-170); Magnesium 1.9 mg/dL (1.5-2.4); Phosphorus 4.1 mg/dL (2.4-5.1); Sodium 141 mmol/L (135-145); Total Bilirubin 0.6 mg/dL (0.3-1.2); Total Iron Binding Capacity 304 UG/DL (228-460); Total Protein 7.1 g/dL (6.2-8.2)
[2024-12-10 17:25] LABS: HCT 37.4 % (37.2-46.3); MCH 28.4 pg (27.0-32.0); MCHC 32.1 g/dL (32.0-37.0); MCV 88.6 FL (80.0-97.0); Mean Platelet Volume 11.8 FL (9.5-12.2); NRBC Per 100 WBC 0 X 10*3/uL (0.00-0.01); Platelet Count 186 X 10*3/uL (140-440); RBC 4.22 X 10*6/uL (4.10-5.20); RDW 13.5 % (11.5-14.5)
[2024-12-10 17:51] LABS: Microalbumin Creatinine Ratio <47 mg/g Cr (0-30); Urine Creatinine 25.7 mg/dL (28.0-217.0)
== END | disposition home or self-care (01) ==
LOC: LABWHC1 10:46
PROVIDERS: ATTEND Internal Medicine
DX: E55.9 Vitamin D deficiency, unspecified (principal); Q61.2 Polycystic kidney, adult type; D64.9 Anemia, unspecified; N25.81 Secondary hyperparathyroidism of renal origin; N39.0 Urinary tract infection, site not specified; R80.9 Proteinuria, unspecified
CPT/HCPCS: 36415; 80053; 81003; 82043; 82306; 82570; 82728; 83540; 83550; 83735; 83970; 84100; 85027

== ENCOUNTER → 2025-05-14 | Outpatient (CLI) | payer BC ==
[2025-05-14 10:54] LABS: Creatinine,Urine Random 38.9 mg/dL; Protein/Creatinine Ratio,Urine 0.308
[2025-05-14 15:09] LABS: HCT 36.2 % (37.2-46.3); MCH 28.3 pg (27.0-32.0); MCHC 30.4 g/dL (32.0-37.0); MCV 93.1 FL (80.0-97.0); Mean Platelet Volume 11.4 FL (9.5-12.2); NRBC Per 100 WBC 0 X 10*3/uL (0.00-0.01); Platelet Count 141 X 10*3/uL (140-440); RBC 3.89 X 10*6/uL (4.10-5.20); RDW 13.4 % (11.5-14.5); WBC 4.08 X 10*3/uL (4.50-10.00)
[2025-05-14 15:30] LABS: ALT 11 U/L (8-44); AST 23 U/L (13-35); Albumin 4.2 g/dL (3.8-4.9); Albumin/Globulin Ratio 1.68 Ratio (1.60-3.17); Alkaline Phosphatase 47 U/L (41-126); BUN/Creat Ratio 19.56 Ratio (12.00-20.00); Blood Urea Nitrogen 31.3 mg/dL (9.0-27.0); Calcium 9.4 mg/dL (8.7-10.3); Carbon Dioxide 21.7 mmol/L (21.6-31.8); Chloride 109 mmol/L (96-109); Globulin 2.5 g/dL (1.6-3.3); Glucose 94 mg/dL (70-110); Potassium 4.8 mmol/L (3.5-5.5); Sodium 141 mmol/L (135-145); Total Bilirubin 0.5 mg/dL (0.3-1.2); Total Protein 6.7 g/dL (6.2-8.2)
[2025-05-14 21:01] LABS: Appearance,Urine Clear (Clear); Bilirubin,Urine Negative (Negative); Blood,Urine Small (Negative); Color,Urine Yellow (Yellow); Ketones,Urine Negative (Negative); Nitrite,Urine Negative (Negative); Specific Gravity,Urine 1.008 (1.001-1.030); Urobilinogen,Urine 0.2 E.U./DL
[2025-05-14 21:09] LABS: Bacteria,Urine None Seen (None Seen)
== END | disposition home or self-care (01) ==
LOC: LABWHC1 09:28
PROVIDERS: ATTEND Internal Medicine Nephrology
DX: Q61.2 Polycystic kidney, adult type (principal); N18.31 Chronic kidney disease, stage 3a
CPT/HCPCS: 36415; 80053; 81001; 82570; 84100; 84156; 85027